=== PATIENT | male | born 1995 | race African-American/Black ===

== ENCOUNTER 2023-10-17 06:42 | Emergency (ER) | payer SELFPAY ==
[~2023-10-17] VITALS: Ht 180.3 cm; Wt 89.0 kg
[2023-10-17 06:52] VITALS: O2SAT 96
[2023-10-17] MEDS: KETOROLAC 60MG/2ML VIAL IM ONE (07:00)
[2023-10-17] MEDS ORDERED: AMOX1TAB16 PO (07:56)
[2023-10-17] MEDS ORDERED: IBUP-2028 PO (07:56)
[2023-10-17] MEDS: SODIUM CHLORIDE 0.9% 1,000 ML IV ONE (08:16)
[2023-10-17] MEDS: METOCLOPRAMIDE HCL 10MG/2ML VIAL IV ONE (08:18)
[2023-10-17] MEDS: ACETAMINOPHEN 325MG TABLET PO ONE (08:18)
[2023-10-17 09:53] VITALS: BP 114/67; PULSE 62; RESP 18; TEMP 98.1
== END 2023-10-17 10:19 | disposition home or self-care (01) ==
LOC: ER 06:42
DX: K02.9 Dental caries, unspecified (principal); G43.909 Migraine, unspecified, not intractable, without status migrainosus
CPT/HCPCS: 99285; 96374; 70450; 96361; 96372; J1885; J2765; J7030